=== PATIENT | female | born 1950 | race Hispanic/Latino ===

== ENCOUNTER 2021-08-05 10:35 | Observation (INO) | payer MEDICARE ==
--- NOTE | 2021-08-05 11:07 | Emergency Department Report ---
ED Shortness of Breath HPI - General Chief Complaint: Dyspnea/Respdistress Stated Complaint: COVID+/GOLD Time Seen by Provider: 08/05/21 10:38 Source: EMS Mode of arrival: Stretcher Limitations: No Limitations - History of Present Illness Initial Comments: 70-year-old female, history of stage IV lung cancer (diagnosed in 2014), COVID- 19, presents to ED with difficulty breathing. Patient was recently placed on home hospice care with [facility]. I spoke with the on-call hospice nurse, Tiara, over the phone ([phone]). She states patient was recently discharged from [facility] 2 days ago into hospice care. Patient has an indwelling pleural catheter. Nurse states she received a call from patient's sister, who she lives with, stating that she believes the patient needs to be drained, however they did not have bottles for the fluid at home. Hospice nurse states that she herself is able to drain the pleural fluid, howev er, since patient does not have the bottles, and neither does she, she advised patient to come to the ER for fluid drainage. EMS and patient reports that she is DNR and DNI. EMS was called, state patient had O2 sats in the 80s on nasal cannula. They placed patient on CPAP and transported to the ED. I spoke with the patient's sister over the phone. She states patient was diagnosed with lung cancer in 2014 and had right lobectomy at that time. [facility]. She was sent to [facility] last week for difficulty breathing, where she tested positive for COVID- 19. Sister states patient was only there for a few days but was discharged 2 days ago into hospice care. Patient has had her pleural drain for "less than a year" according to the sister. During admission last week at [facility], sister states she was told that patient would need daily draining of her pleural fluid. Patient is now living with her sister, now that she has been placed in hospice care. However, sister states she called the equipment [employer] and it will not be until Friday or Friday until they will be able to deliver the drainage bottles. Both patient and sister confirmed that patient is DNR/DNI. MD Complaint: shortness of breath -: Last night Consistency: constant Improves With: nothing Worsens With: nothing Known History Of: other (Lung cancer) Context: recent URI Associated Symptoms: denies other symptoms Treatments Prior to Arrival: NIPPV - Related Data Home Oxygen Therapy: Yes Home Oxygen Amount: 2 Liters Allergies Allergy/AdvReac Type Severity Reaction Status Date / Time No Known Allergies Allergy Verified 08/05/21 13:42 ED Review of Systems ROS: Stated complaint: COVID+/GOLD Other details as noted in HPI Comment: All other systems reviewed and negative Constitutional: denies: fever Respiratory: cough, shortness of breath Cardiovascular: denies: chest pain Gastrointestinal: denies: vomiting, diarrhea ED Physical Exam - General Limitations: No Limitations General appearance: alert - Head Head exam: Present: atraumatic, normocephalic - Eye Eye exam: Present: normal appearance, EOMI - ENT ENT exam: Present: mucous membranes moist - Neck Neck exam: Present: normal inspection - Respiratory Respiratory exam: Present: respiratory distress, rales, other (pleural catheter located in right posterior thorax) - Cardiovascular Cardiovascular Exam: Present: normal rhythm, tachycardia - GI/Abdominal GI/Abdominal exam: Present: soft. Absent: distended, tenderness - Extremities Exam Extremities exam: Present: normal inspection - Neurological Exam Neurological exam: Present: alert, oriented X3 - Psychiatric Psychiatric exam: Present: normal affect, normal mood - Skin Skin exam: Present: warm, dry, intact, normal color ED Course Vital Signs 08/05/21 08/05/21 08/05/21 08:23 10:35 10:39 Temperature 98 F Pulse Rate 126 H Respiratory 24 Rate Blood Pressure 106/77 110/48 110/48 O2 Sat by Pulse 100 99 96 Oximetry 08/05/21 08/05/21 08/05/21 10:45 11:01 11:15 Temperature Pulse Rate 111 H 113 H 109 H Respiratory 23 15 22 Rate Blood Pressure 106/77 107/61 101/64 O2 Sat by Pulse 100 100 100 Oximetry 08/05/21 08/05/21 08/05/21 11:31 11:45 12:01 Temperature Pulse Rate 113 H 118 H 119 H Respiratory 14 20 25 H Rate Blood Pressure 109/76 110/78 116/51 O2 Sat by Pulse 100 100 100 Oximetry 08/05/21 08/05/21 08/05/21 12:15 12:31 12:45 Temperature Pulse Rate 116 H 114 H 112 H Respiratory 28 H 27 H 15 Rate Blood Pressure 98/59 89/51 80/47 O2 Sat by Pulse 99 89 Oximetry 08/05/21 08/05/21 08/05/21 13:01 13:15 13:31 Temperature Pulse Rate 111 H 115 H 116 H Respiratory 26 H 22 16 Rate Blood Pressure 89/51 104/49 83/57 O2 Sat by Pulse 95 98 96 Oximetry 08/05/21 08/05/21 13:45 14:01 Temperature Pulse Rate 114 H 112 H Respiratory 21 20 Rate Blood Pressure 108/57 95/39 O2 Sat by Pulse 97 94 Oximetry - Consultations Consultation #1: 08/05/21 13:[address] Hameed, healthcare business analyst. Recommends admitting patient so that she can be seen by IR. ED Medical Decision Making - Lab Data Result diagrams: 08/05/21 12:30 08/05/21 12:30 - EKG Data -: EKG Interpreted by Me EKG shows normal: sinus rhythm, axis, intervals, QRS complexes Rate: tachycardia - EKG Data Interpretation: nonspecific ST-T wave hardeep - Radiology Data Radiology results: report reviewed, image reviewed - Medical Decision Making 70-year-old female, history of stage IV lung cancer, COVID-19, presents to ED with difficulty breathing. Patient initially brought in by EMS on CPAP, but has since been weaned back down to her usual nasal cannula. Chest x-ray shows whiteout of right lung field. Patient has history of right sided lobectomy and likely malignant pleural effusion. Unable to drain her effusion at home so was sent to ED by her hospice nurse. Discussed case with healthcare business analyst who recommends patient be seen by IR tomorrow. Patient has rales on exam, however she is in no respiratory distress. Patient is tachycardic and became hypotensive during her stay. She was given small bolus of 250 cc NS to avoid any further fluid overload. Blood pressure responded accordingly. Patient will be admitted by hospitalist, Dr. Sexton, for further management. DNR form has been signed by the patient, witnessed by Loyd BASHIR, and placed on the chart. - Differential Diagnosis Pleural effusion, Covid, pneumonia Critical care attestation.: If time is entered above; I have spent that time in minutes in the direct care of this critically ill patient, excluding procedure time. ED Disposition Clinical Impression: COVID-19, Pleural effusion, Shortness of breath, Stage 4 lung cancer Disposition: 09 ADMITTED INPATIENT Is pt being admited?: Yes Condition: Stable Referrals: PRIMARY CARE, [Primary Care Provider] - 3-5 Days Time of Disposition: 13:41
--- NOTE | 2021-08-05 11:19 | XRay Report ---
CHEST 1 VIEW INDICATION / CLINICAL INFORMATION: sob; hx lung CA, COVID. COMPARISON: 04/14/2013 FINDINGS: SUPPORT DEVICES: A right chest tube is present. HEART / MEDIASTINUM: No significant abnormality. LUNGS / PLEURA: Left lung is well-expanded and grossly clear. There is complete opacification of the right hemithorax with mediastinal shift to the right. I suspect the patient has had recent pneumonect cain No pneumothorax. ADDITIONAL FINDINGS: No significant additional findings. IMPRESSION: 1. Complete opacification of the right hemithorax. Please confirm clinically that the patient has had right pneumonectomy. Right chest tube is present. 2. Left lung is grossly clear. Signer Name: Lisa Valdez MD Signed: 08/05/2021 11:15 AM Workstation Name: [id number]
[2021-08-05 12:40] LABS: Basophils % (Auto) 0.3 % (0.0-1.8); Eosinophils % (Auto) 0.1 % (0.0-4.3); Hematocrit 32.7 % (30.3-42.9); Lymphocytes # (Auto) 0.9 K/mm3 (1.2-5.4); Lymphocytes % (Auto) 6.1 % (13.4-35.0); Mean Corpuscular HGB Conc 31 % (30-34); Mean Corpuscular Volume 97 fl (79-97); Monocytes # (Auto) 1.3 K/mm3 (0.0-0.8); Monocytes % (Auto) 8.3 % (0.0-7.3); Platelet Count 263 K/mm3 (140-440); Red Blood Count 3.37 M/mm3 (3.65-5.03)
[2021-08-05] MEDS ORDERED: SODIUM CHLORIDE 0.9% 250ML 250 ML IV ONE (12:50)
[2021-08-05 12:57] LABS: Calcium 8.5 mg/dL (8.4-10.2)
[2021-08-05] MEDS ORDERED: levoFLOXacin 750 MG TAB PO ONE (13:39)
[2021-08-05] MEDS ORDERED: hydrALAZINE 20 MG/1 ML INJ IV PRN (14:23)
[2021-08-05] MEDS ORDERED: HYDROcodone/ACETAMINOPHEN 5-325 MG TAB PO PRN (14:23)
[2021-08-05] MEDS ORDERED: ACETAMINOPHEN 325 MG TAB PO PRN (14:23)
--- NOTE | 2021-08-05 14:23 | History and Physical Report ---
History of Present Illness Date of examination: 08/05/21 Date of admission: 08/05/21 Chief complaint: SOB History of present illness: 70-year-old female, history of stage IV lung cancer (diagnosed in 2014), COVID- 19, presents to ED with difficulty breathing. Patient was recently discharged from [facility] 2 days ago into hospice care with [facility]. Patient has an indwelling pleural catheter, however they did not have bottles to drain for the fluid at home. Hospice nurse states that she herself is able to drain the pleural fluid, However, since patient does not have the bottles, and neither does she, she advised patient to come to the ER for fluid drainage. EMS and patient reports that she is DNR and DNI. EMS was called, state patient had O2 sats in the 80s on nasal cannula. They placed patient on CPAP and transported to the ED. However patient currently saturating well with nasal cannula O2. Chest x-ray shows whiteout of right lung field. Patient is being admitted to be seen by IR tomorrow. Review of System: Constitutional: no fever, no chills, no weight loss Ears, eyes, nose, mouth and throat: no nasal congestion, no nasal discharge, no sinus pressure, no vision change, no red eye. Neck: No neck pain or rigidity. Cardiovascular: No chest pain, + orthopnea, no palpitations, no leg swelling Respiratory: + shortness of breath, no cough, no congestion, no wheezing Gastrointestinal: no abdominal pain, no nausea, no vomiting Genitourinary : no dysuria, no hematuria Musculoskeletal: no joint swelling or muscle ache Integumentary: no rash, no pruritis Neurological: no parathesias, no numbness, no tingling Endocrine: no cold or heat intolerance, no polyuria or polydipsia Hematologic/Lymphatic: no easy bruising, no easy bleeding, no gland swelling Allergic/Immunologic: no urticaria, no angioedema. Past History Past Medical History: other (Stage IV lung cancer, history of COVID-19) Past Surgical History: Other (Right-sided lower lobectomy, right lung pleural catheter placement) Social history: denies: smoking, alcohol abuse Family history: hypertension Medications and Allergies Allergies Allergy/AdvReac Type Severity Reaction Status Date / Time No Known Allergies Allergy Verified 08/05/21 13:42 Active Meds: Active Medications Midodrine (Midodrine 5 Mg Tab) 10 mg PO TID@0800,1200,1600 [facility] Exam - Physical Exam Narrative exam: GENERAL: well-developed elderlt WF lying on bed appeared to be in mild discomfort. HEENT: Normocephalic. Atraumatic. No conjunctival congestion or icterus. Patient has moist mucous membranes. NECK: Supple. Trachea midline. CHEST/LUNGS: + crackles or rhonchi on right lung field. HEART/CARDIOVASCULAR: Regular in rate and rhythm. S1 and S2 positive. ABDOMEN: Abdomen is soft, nontender. Patient has normal bowel sounds. SKIN: There is no rash. Warm and dry. NEURO: No focal motor deficit. Follows command. MUSCULOSKELETAL: No joint effusion or tenderness. EXTRIMITY: No edema, no cyanosis or clubbing. PSYCH: Cooperative. - Constitutional Vitals: Temp Pulse Resp BP Pulse Ox 98 F 112 H 20 95/39 94 08/05/21 10:35 08/05/21 14:01 08/05/21 14:01 08/05/21 14:01 08/05/21 14:01 Results - Labs CBC & Chem 7: 08/05/21 12:30 08/05/21 12:30 Labs: Abnormal lab results 08/05/21 08/05/21 Range/Units 12:30 12:30 WBC 15.4 H (4.5-11.0) K/mm3 RBC 3.37 L (3.65-5.03) M/mm3 Hgb 10.0 L (10.1-14.3) gm/dl RDW 17.0 H (13.2-15.2) % Lymph % (Auto) 6.1 L (13.4-35.0) % [place] % (Auto) 8.3 H (0.0-7.3) % Lymph # (Auto) 0.9 L (1.2-5.4) K/mm3 [place] # (Auto) 1.3 H (0.0-0.8) K/mm3 Seg Neutrophils % 85.2 H (40.0-70.0) % Seg Neutrophils # 13.2 H (1.8-7.7) K/mm3 Sodium 130 L (137-145) mmol/L Carbon Dioxide 21 L (22-30) mmol/L BUN 24 H (7-17) mg/dL - Imaging and Cardiology Chest x-ray: report reviewed Assessment and Plan --Right sided malignant pleural effusion Consulted IR for pleural drainage --Acute hypoxic respiratory failure cont supplemental O2, albuterol inhaler as needed likely due to underlying stage IV malignancy and Malignant pleural effusion --Stage 4 lung cancer continue supportive care --SIRS likely due to underlying carcinoma, continue IV antibiotics for now, follow culture --hyponatremia, mild, follow BMP --MICHELLE, likely vasomotor nephropathy, gentle hydration, follow BMP --Anemia of chronic disease, follow H&H --History of COVID-19, will rereorder the test, continue to follow. --DVT prophylaxis, heparin --patient is DNR and DNI
[2021-08-05] MEDS: MIDODRINE 5 MG TAB PO SCH (15:58)
[2021-08-05] MEDS ORDERED: ALBUTEROL 8.5 GM MDI INHALATION IH PRN (18:31)
[2021-08-05] MEDS ORDERED: ALBUTEROL 2.5 MG/3 ML NEBU IH PRN (22:00)
[2021-08-05] MEDS: HEPARIN 5,000 UNIT/1 ML VIAL SUB-Q SCH (22:31)
[2021-08-05] MEDS: FAMOTIDINE 10 MG TAB PO SCH (22:31)
[2021-08-05 23:33] LABS: INR 1.13 (0.87-1.13)
[2021-08-05 23:34] LABS: Partial Thromboplastin Time 30.5 Sec. (24.2-36.6)
[2021-08-06] MEDS: HEPARIN 5,000 UNIT/1 ML VIAL SUB-Q SCH ×3 (05:44→23:04)
--- NOTE | 2021-08-06 09:46 | Electrocardiograph Report ---
[facility] Test Date: 2021-08-05 Test Time: 10:46:47 Pat Name: ELVIRA EARLER Department: Room: [facility] Gender: F Mix Chemist: DEENA : 1950 Requested By: DIVYA NARANJO Order Number: [id number] Reading MD: Clive Gonzalez Measurements Intervals [employer] Rate: 111 P: 49 [place]: 175 QRS: 33 QRSD: 83 T: 143 QT: 333 QTc: 451 Interpretive Statements Sinus tachycardia Low voltage, extremity and precordial leads Nonspecific T abnrm, anterolateral leads No previous ECG available for comparison Electronically Signed On 08-06-2021 9:45:59 EDT by Clive Gonzalez
[2021-08-06] MEDS: MIDODRINE 5 MG TAB PO SCH ×3 (10:10→16:00)
[2021-08-06] MEDS: FAMOTIDINE 10 MG TAB PO SCH ×2 (10:10→23:05)
[2021-08-06 10:54] LABS: Calcium 8.4 mg/dL (8.4-10.2)
--- NOTE | 2021-08-06 15:02 | Progress Note ---
Assessment and Plan Assessment and plan: 70-year-old female, history of stage IV lung cancer (diagnosed in 2014), COVID- 19, presents to ED with difficulty breathing. Patient was recently discharged from [facility] 2 days ago into hospice care with [facility]. Patient has an indwelling pleural catheter, however they did not have bottles to drain for the fluid at home. Hospice nurse states that she herself is able to drain the pleural fluid, However, since patient does not have the bottles, and neither does she, she advised patient to come to the ER for fluid drainage. EMS and patient reports that she is DNR and DNI. EMS was called, state patient had O2 sats in the 80s on nasal cannula. They placed patient on CPAP and transported to the ED. However patient currently saturating well with nasal cannula O2. Chest x-ray shows whiteout of right lung field. Patient is being admitted to be seen by IR tomorrow. 08/06: Patient seen and examined discussed extensively with case management they have been in touch with the [facility] to obtain the canister for drainage. Neuro radiology consult has been placed for thoracentesis. Continue current management and weaning at this time. Anticipate discharge with [facility] in a.m. --Right sided malignant pleural effusion Consulted IR for pleural drainage --Acute hypoxic respiratory failure cont supplemental O2, albuterol inhaler as needed likely due to underlying stage IV malignancy and Malignant pleural effusion --Stage 4 lung cancer continue supportive care --SIRS likely due to underlying carcinoma, continue IV antibiotics for now, follow culture --hyponatremia, mild, follow BMP --MICHELLE, likely vasomotor nephropathy, gentle hydration, follow BMP --Anemia of chronic disease, follow H&H --History of COVID-19, will rereorder the test, continue to follow. --DVT prophylaxis, heparin --patient is DNR and DNI History Interval history: Patient seen and examined resting comfortably although on 2 L of oxygen no distress at this time. Hospitalist Physical - Physical exam Narrative exam: GENERAL: well-developed elderlt WF lying on bed appeared to be in mild discomfort. HEENT: Normocephalic. Atraumatic. No conjunctival congestion or icterus. Patient has moist mucous membranes. NECK: Supple. Trachea midline. CHEST/LUNGS: + crackles or rhonchi on right lung field. HEART/CARDIOVASCULAR: Regular in rate and rhythm. S1 and S2 positive. ABDOMEN: Abdomen is soft, nontender. Patient has normal bowel sounds. SKIN: Multiple skin tear, bilateral upper extremity edema noted, multiple ecchymosis there is no rash. Warm. NEURO: No focal motor deficit. Follows command. MUSCULOSKELETAL: No joint effusion or tenderness. EXTRIMITY: No edema, no cyanosis or clubbing. PSYCH: Cooperative. - Constitutional Vitals: Temp Pulse Resp BP Pulse Ox 98.8 F 96 H 20 98/51 99 08/06/21 03:20 08/06/21 04:27 08/06/21 03:20 08/06/21 03:20 08/06/21 11:11 Results - Labs CBC & Chem 7: 08/05/21 12:30 08/06/21 10:10 Labs: Laboratory Last Values WBC 15.4 K/mm3 (4.5-11.0) H 08/05/21 12:30 RBC 3.37 M/mm3 (3.65-5.03) L 08/05/21 12:30 Hgb 10.0 gm/dl (10.1-14.3) L 08/05/21 12:30 Hct 32.7 % (30.3-42.9) 08/05/21 12:30 MCV 97 fl (79-97) 08/05/21 12:30 MCH 30 pg (28-32) 08/05/21 12:30 MCHC 31 % (30-34) 08/05/21 12:30 RDW 17.0 % (13.2-15.2) H 08/05/21 12:30 Plt Count 263 K/mm3 (140-440) 08/05/21 12:30 Lymph % (Auto) 6.1 % (13.4-35.0) L 08/05/21 12:30 [place] % (Auto) 8.3 % (0.0-7.3) H 08/05/21 12:30 Eos % (Auto) 0.1 % (0.0-4.3) 08/05/21 12:30 Baso % (Auto) 0.3 % (0.0-1.8) 08/05/21 12:30 Lymph # (Auto) 0.9 K/mm3 (1.2-5.4) L 08/05/21 12:30 [place] # (Auto) 1.3 K/mm3 (0.0-0.8) H 08/05/21 12:30 Eos # (Auto) 0.0 K/mm3 (0.0-0.4) 08/05/21 12:30 Baso # (Auto) 0.0 K/mm3 (0.0-0.1) 08/05/21 12:30 Seg Neutrophils % 85.2 % (40.0-70.0) H 08/05/21 12:30 Seg Neutrophils # 13.2 K/mm3 (1.8-7.7) H 08/05/21 12:30 PT 15.0 Sec. (12.2-14.9) H 08/05/21 22:29 INR 1.13 (0.87-1.13) 08/05/21 22:29 APTT 30.5 Sec. (24.2-36.6) 08/05/21 22:29 Sodium 140 mmol/L (137-145) D 08/06/21 10:10 Potassium 3.2 mmol/L (3.6-5.0) L 08/06/21 10:10 Chloride 103.4 mmol/L (98-107) 08/06/21 10:10 Carbon Dioxide 29 mmol/L (22-30) D 08/06/21 10:10 Anion Gap 11 mmol/L 08/06/21 10:10 BUN 23 mg/dL (7-17) H 08/06/21 10:10 Creatinine 1.2 mg/dL (0.6-1.2) 08/06/21 10:10 Estimated GFR 45 ml/min 08/06/21 10:10 BUN/Creatinine Ratio 19 % 08/06/21 10:10 Glucose 62 mg/dL (65-100) L 08/06/21 10:10 Calcium 8.4 mg/dL (8.4-10.2) 08/06/21 10:10 Coronavirus (PCR) Positive (Negative) A 08/05/21 Unknown Microbiology: Microbiology 08/05/21 22:52 Peripheral/Venous Blood Culture - Preliminary Culture in Progress 08/05/21 22:29 Peripheral/Venous Blood Culture - Preliminary Culture in Progress Selby/IV: Voiding Method External Female Catheter Active Medications - Current Medications Current Medications: Generic Name Dose Route Start Last Admin Trade Name Freq PRN Reason Stop Dose Admin Acetaminophen 650 mg 08/05/21 14:23 Acetaminophen 325 Mg Tab PO Q4H PRN Pain MILD(1-3)/Fever >100.5/HARRY Hydrocodone Bitart/Acetaminophen 2 each 08/05/21 14:23 Hydrocodone/Acetaminophen 5-325 Mg Tab PO Q6H PRN Pain, Moderate (4-6) Albuterol 2.5 mg 08/05/21 22:00 Albuterol 2.5 Mg/3 Ml Nebu IH Q4HRT PRN Shortness Of Breath Famotidine 10 mg 08/05/21 22:00 08/06/21 10:10 Famotidine 10 Mg Tab PO 10 mg BID OVIDIO Administration Heparin Sodium (Porcine) 5,000 unit 08/05/21 22:00 08/06/21 14:44 Heparin 5,000 Unit/1 Ml Vial SUB-Q 5,000 unit Q8HR OVIDIO Administration Hydralazine HCl 5 mg 08/05/21 14:23 Hydralazine 20 Mg/1 Ml Inj IV Q30MIN PRN Hypertension Levofloxacin/Dextrose 750 mg in 150 mls @ 100 mls/hr 08/06/21 10:00 08/06/21 10:09 Levaquin 750mg/150ml IV 08/10/21 09:59 100 mls/hr Q24HR OVIDIO Administration Protocol Midodrine 10 mg 08/05/21 16:00 08/06/21 12:00 Midodrine 5 Mg Tab PO 10 mg TID@0800,1200,1600 OVIDIO Administration Nutrition/Malnutrition Assess - Dietary Evaluation Nutrition/Malnutrition Findings: Nutrition Notes Start: 08/06/21 11:31 Freq: Status: Active Protocol: Document 08/06/21 11:32 (Rec: 08/06/21 11:37 [id number]) Nutrition Notes Need for Assessment generated from: MD Order,direct chill casting operator,MST Initial or Follow up Assessment Current Diagnosis Acute Kidney Injury, Respiratory Failure Other Pertinent Diagnosis stage IV lung cancer, COVID 19 PUI, SIRS, anemia Current Diet pureed Labs/Tests K 3.2 Pertinent Medications Reviewed Height 5 ft 3 in Weight 74.8 kg [place] Body Weight (kg) 52.27 BMI 29.2 Weight Status Overweight Subjective/Other Information MD order for ONS. RN screen for skin risk and MST. Pt with wound on both arms. Unable to speak with pt. No intakes yet in chart. Unable to contact RN. Burn Absent Trauma Absent GI Symptoms None Minimum of two criteria No #1 Nutrition Diagnosis No nutrition diagnosis at this time Is patient on ventilator? No Is Patient Ambulatory and/or Out of Bed No REE-([facility]-confined to bed) [phone] Calculation Used for Recommendations [facility] Additional Notes Protein: (1-1.2g/kg) 75-90g Fluid: 1 ml/kcal Nutrition Intervention Change Diet Order: continue Add Supplement/Snack (indicate name/kcal Ensure Enlive BID /protein ) Provides kCal: 700 Provides Protein (gm) 40 Goal #1 Meet at least 75% of protein and energy needs via PO and ONS intakes Anticipated Discharge Needs: Pureed Follow-Up By: 08/08/21 Additional Comments F/u: intakes, ONS tolerance, assessment
[2021-08-07] MEDS: HEPARIN 5,000 UNIT/1 ML VIAL SUB-Q SCH ×2 (06:33→13:37)
--- NOTE | 2021-08-07 09:33 | Discharge Summary ---
Providers - Providers Date of Admission: 08/05/21 15:34 Attending physician: ULISES MORA MD Primary care physician: [facility] SPECIALIST Hospitalization Reason for admission: Shortness of breath pleural effusion Condition: Stable Hospital course: 70-year-old female, history of stage IV lung cancer (diagnosed in 2014), COVID- 19, presents to ED with difficulty breathing. Patient was recently discharged from [facility] 2 days ago into hospice care with [facility]. Patient has an indwelling pleural catheter, however they did not have bottles to drain for the fluid at home. Hospice nurse states that she herself is able to drain the pleural fluid, However, since patient does not have the bottles, and neither does she, she advised patient to come to the ER for fluid drainage. EMS and patient reports that she is DNR and DNI. EMS was called, state patient had O2 sats in the 80s on nasal cannula. They placed patient on CPAP and transported to the ED. However patient currently saturating well with nasal cannula O2. Chest x-ray shows whiteout of right lung field. Patient is being admitted to be seen by IR tomorrow. 08/06: Patient seen and examined discussed extensively with case management they have been in touch with the [employer] to obtain the canister for drainage. Neuro radiology consult has been placed for thoracentesis. Continue current management and weaning at this time. Anticipate discharge with home health in a.m. 08/07: Patient seen and examined at extensive discussion with Ms. Cheek who says that her breathing is improved. She does have mild tachycardia. I also discussed with case management radiology team to drain fluids using the Pleurx catheter prior to discharge as her home health company and hospice company states that they will have the Pleurx canisters today at home. Prognosis remains poor. I have also called the family to discuss this case with them. --Right sided malignant pleural effusion Consulted IR for pleural drainage --Acute hypoxic respiratory failure cont supplemental O2, albuterol inhaler as needed likely due to underlying stage IV malignancy and Malignant pleural effusion --Stage 4 lung cancer continue supportive care --SIRS likely due to underlying carcinoma, continue IV antibiotics for now, follow culture --hyponatremia, mild, follow BMP --MICHELLE, likely vasomotor nephropathy, gentle hydration, follow BMP --Anemia of chronic disease, follow H&H --History of COVID-19, will rereorder the test, continue to follow. --DVT prophylaxis, heparin --patient is DNR and DNI Disposition: 51 HOSPICE/MEDICAL FACILITY Final Discharge Diagnosis (Prints w/discharge instructions): Acute hypoxic r espiratory failure secondary to malignant pleural effusion Time spent for discharge: 35 minutes Core Measure Documentation - Palliative Care Palliative Care/ Comfort Measures: Hospice Care - Core Measures Any of the following diagnoses?: none Exam - Physical Exam Narrative exam: GENERAL: well-developed elderlt WF lying on bed appeared to be in mild discomfort. HEENT: Normocephalic. Atraumatic. No conjunctival congestion or icterus. Patient has moist mucous membranes. NECK: Supple. Trachea midline. CHEST/LUNGS: + crackles or rhonchi on right lung field. HEART/CARDIOVASCULAR: Regular in rate and rhythm. S1 and S2 positive. ABDOMEN: Abdomen is soft, nontender. Patient has normal bowel sounds. SKIN: Multiple skin tear, bilateral upper extremity edema noted, multiple ecchymosis there is no rash. Warm. NEURO: No focal motor deficit. Follows command. MUSCULOSKELETAL: No joint effusion or tenderness. EXTRIMITY: No edema, no cyanosis or clubbing. PSYCH: Cooperative. - Constitutional Vitals: Temp Pulse Resp BP Pulse Ox 97.6 F 117 H 16 100/62 97 08/07/21 05:34 08/07/21 05:34 08/07/21 05:34 08/06/21 23:14 08/07/21 05:34 Plan Activity: advance as tolerated, fall precautions Diet: low fat Special Instructions: record daily weights Plan of Treatment: MANAGEMENT ON DISCHARGE PER HOSPICE TEAM Follow up with: PRIMARY MD BRICE [Primary Care Provider] - 3-5 Days
[2021-08-07] MEDS: FAMOTIDINE 10 MG TAB PO SCH (10:51)
[2021-08-07] MEDS: MIDODRINE 5 MG TAB PO SCH ×2 (10:51→13:37)
[2021-08-07 13:29] VITALS: BP 104/70
== END 2021-08-07 16:30 | disposition hospice, inpatient (51) ==
LOC: ED 10:35 → 3A 15:34
PROVIDERS: ADMIT Internal Medicine; ATTEND Internal Medicine
DX: U07.1 COVID-19 (principal); J96.01 Acute respiratory failure with hypoxia; R65.10 Systemic inflammatory response syndrome (SIRS) of non-infectious origin without acute organ dysfunction; J91.0 Malignant pleural effusion; C34.91 Malignant neoplasm of unspecified part of right bronchus or lung; E87.1 Hypo-osmolality and hyponatremia; N17.8 Other acute kidney failure; N17.0 Acute kidney failure with tubular necrosis; D53.9 Nutritional anemia, unspecified; Z79.899 Other long term (current) drug therapy; Z98.890 Other specified postprocedural states
CPT/HCPCS: 36415; 71045; 80048; 85025; 85610; 85730; 87040; 93005; 94760; 96365; 96366; 96372; 99285; G0378; J1644; J1956; J7050; U0003; 94640